=== PATIENT | female | born 1960 | race Caucasian/White ===

== ENCOUNTER 2024-10-13 06:17 | Day surgery (SDC) | payer OTHER ==
[~2024-10-13] VITALS: Ht 154.9 cm; Wt 71.4 kg
[2024-10-13] MEDS ORDERED: SODIUM CHLORIDE 0.9% 1,000 ML ONE (06:59)
[2024-10-13] MEDS: SODIUM CHLORIDE 0.9% 1,000 ML IV ONE (07:24)
[2024-10-13] MEDS ORDERED: FentaNYL CITRATE PF 100 MCG/2 ML VIAL ONE (08:05)
[2024-10-13] MEDS ORDERED: MIDAZOLAM HCL 2 MG/2 ML VIAL ONE (08:05)
[2024-10-13] MEDS ORDERED: CHOL500045 PO (08:09)
[2024-10-13] MEDS ORDERED: EMPA10TA3 PO (08:09)
[2024-10-13] MEDS ORDERED: NITR0.4T50 SL (08:09)
[2024-10-13] MEDS ORDERED: LORA10TA7 PO (08:09)
[2024-10-13] MEDS ORDERED: LISI10TA24 PO (08:09)
[2024-10-13] MEDS ORDERED: BECL10.62 IH (08:09)
[2024-10-13] MEDS ORDERED: OMEP20CA12 PO (08:09)
[2024-10-13] MEDS ORDERED: ALBU18HF12 IH (08:09)
[2024-10-13] MEDS ORDERED: FLUT16SP NASAL (08:09)
[2024-10-13] MEDS ORDERED: FURO20TA4 PO (08:09)
[2024-10-13] MEDS ORDERED: ASCO500T20 PO (08:09)
[2024-10-13 09:50] VITALS: PULSE 64; RESP 20; O2SAT 97
[2024-10-13] MEDS ORDERED: BENZOCAINE 20% 50 MCG/SPRAY 57 GM ONE (12:00)
[2024-10-13] MEDS ORDERED: ALBUTEROL SULFATE 2.5 MG/0.5 ML NEB SOLUTION NEB ONE (12:00)
[2024-10-13] MEDS ORDERED: LIDOCAINE 2% 11 ML JELLY ONE (12:00)
[2024-10-13] MEDS ORDERED: LIDOCAINE 4% 50 ML SOLUTION ONE (12:00)
== END 2024-10-13 14:55 | disposition home or self-care (01) ==
LOC: SURGERY 06:17
PROVIDERS: ATTEND Internal Medicine Critical Care Medicine
DX: R05.3 Chronic cough (principal); J38.4 Edema of larynx; B37.0 Candidal stomatitis; I25.2 Old myocardial infarction; Z90.49 Acquired absence of other specified parts of digestive tract; Z98.890 Other specified postprocedural states; Z87.891 Personal history of nicotine dependence; M19.90 Unspecified osteoarthritis, unspecified site; D64.9 Anemia, unspecified; Z79.899 Other long term (current) drug therapy
CPT/HCPCS: 31623; 87206; 87101; 87220; 87070; 88108; 31624; 94760; 71045; 87015; J3010; J2250; J2919; J7030; J7613; Z7610